=== PATIENT | female | born 1945 | race Caucasian/White ===

== ENCOUNTER 2017-02-11 21:02 | Inpatient (IN) | payer MEDICARE, BC, MEDICAID ==
[~2017-02-11 21:02] MED LIST: ACETAMINOPHEN500 M2 PO; ALBUMINAR-12.5 GM/50 IV; ALBUTEROL I0.5 ML/EA AERO NEB; ALBUTEROL0.83 MG/ML INH; ALBUTEROL2.5 MG/0.1 IH; ALBUTEROL2.5 MG/0.1 PO; ALBUTEROL2.5 MG/3 M INH; ALLERCLEAR10 MG PO; AMIODARONE HCL100 M1 PO; AMIODARONE HCL200 MG PO; AMLODIPINE PO; AMLODIPINE-BEN1 EACH PO; AMOXICILLIN500 M1 PO; AMOXICILLIN500 M2 PO; AMOXIL500 M1 PO; ANTIVERT25 MG PO; ARANESP10 MCG/0.4; ARICEPT10 M2 PO; ARICEPT10 MG PO; ARTIFICIAL TEAR15 M OP; ARTIFICIAL TEAR15 M8 EACH EYE; ARTIFICIAL TEAR1511 OP; ASPIR 8181 M1 PO; ASPIR 8181 MG PO; ASPIR-MOX 325325 MG; ASPIRIN81 M1 CH; ASPIRIN81 MG; ATIVAN1 M1 PO; ATORVASTATIN CA10 M1 PO; BABY ASPIRIN81 MG PO; BISACODYL10 M1 RC; BISCOLAX10 MG RC; BISCOLAX10 MG/SUPP RC; CALCARB 600 W/V1 TAB PO; CALCIUM 600 +1 EAC2 PO; CALCIUM 600 +1 EAC5 PO; CALCIUM 600 +1 EACH PO; CALCIUM 6001.5 G PO; CALCIUM OYSTER500 MG; CALCIUM500 MG PO; CARVEDILOL6.25 MG PO; CLARITIN10 M2 PO; CONSTULOSE10 GM/15 M PO; COREG12.5 MG PO; COREG3.125 MG; COUMADIN3 MG PO; COZAAR50 M1 PO; CYCLOBENZAPRINE5 M1 PO; DARVOCET PO; DARVOCET-N 1001 EA PO; DARVOCET-N 1001 TAB; DARVOCET-N 1001 TAB PO; DOCUSATE SODIU100 M2 PO; DOCUSATE SODIU250 M1 PO; DOCUSATE SODIU250 MG PO; DONEPEZIL HCL10 MG PO; DULCOLAX10 MG/SUPP RC; E-400400 UNIT; E-400400 UNIT PO; EPOGEN2000 U/ML IV; FORMULA E400 UNIT PO; FUROSEMIDE40 MG; FUROSEMIDE40 MG PO; FUROSEMIDE80 MG PO; GABAPENTIN100 MG PO; GLUCAGEN1 MG IJ; GLUCAGEN1 MG/1 ML IM; GLUCOSE PO; GLUCOSE4 G PO; H PO; HYDROCODONE PO; HYDROCODONE-AP1 EAC2 PO; HYDROCODONE/APA1 TA PO; IMODIUM2 MG PO; KAYEXALATE15 GM/60 M PO; KAYEXALATE453.6 G1 PO; KAYEXALATE453.6 GM PO; KEFLEX500 MG PO; KLOR-CON M20 MEQ/TAB PO; LANTUS100 U/ML; LANTUS100 U/ML SC; LASIX40 MG; LEVAQUIN500 M1 PO; LEVEMIR100 U/M SQ; LEVEMIR100 UNITS/ SC; LEVOTHYROXINE50 MC3 PO; LEVOTHYROXINE50 MCG PO; LEXAPRO10 MG; LEXAPRO10 MG PO; LEXAPRO20 M2 PO; LIDOCAINE HCL RC; LIDODERM1 EACH TOP; LIDODERM30 EA TP; LIDODERM700 MG TOP; LIPITOR10 M1 PO; LIPITOR20 MG; LIPITOR20 MG PO; LIPITOR40 MG; LIPITOR80 MG; LISINOPRIL40 MG PO; LOPRESSOR100 MG; LORTAB 5/500 TA1 TAB; LOSARTAN POTASS50 MG PO; LOTREL 10/20 MG1 CAP PO; LOTREL 5-10 MG1 CAP; LOTREL 5/20 MG1 CAP; LOVAZA1 GM PO; MAPAP325 M2 PO; MIRALAX17 G1 PO; MULTIVITAMIN1 CAP; MULTIVITAMIN1 CAP PO; MULTIVITAMIN1 TAB PO; MULTIVITAMINS1 EAC5 PO; NEURONTIN100 M1 PO; NEURONTIN100 MG PO; NITROGLYCERIN0.4 MG SL; NITROQUICK0.4 MG SL; NORCO 5-325 TA1 EACH PO; NORCO 5/3251 TA1 PO; NORVASC10 M2 PO; NORVASC5 M1 PO; NORVASC5 M2 PO; NORVASC5 MG PO; NOVOLOG FL100 UNIT/1 SQ; NOVOLOG FL100 UNIT/2 SC; NOVOLOG100 U/M; NOVOLOG100 U/M SQ; NOVOLOG100 UNITS/ SC; NYSTATIN1 EA10 TP; NYSTOP60 GM EXT; OMACOR1 G; OMACOR1 G PO; ONDANSETRON ODT4 M1 PO; OXYCODONE/APAP PO; PAIN RELIEVER325 M2 PO; PHOSLO667 M1; PHOSLO667 M1 PO; PRILOSEC20 MG PO; PROCRIT10000 U/ML IV; PROTONIX40 M1 PO; PROTONIX40 M2 PO; RENAGEL800 MG; RENAGEL800 MG PO; RENVELA800 M1 PO; RENVELA800 MG PO; ROBITUSSIN100 MG/5 M PO; ROCALTROL0.5 MCG; SALONPAS LARGE1 EACH TP; SPS15 GM/60 M PO; TAB A VITE1 EAC1 PO; THERAGRAN1 TAB PO; TRAMADOL HCL50 MG PO; TRAVATAN 0.0042.5 ML; TRAVATAN 0.0042.5 ML OP; TRIAMCINOLONE A15 G TP; TRIAMCINOLONE A15 GM; TRICOR145 M1 PO; TRICOR145 MG; TUMS500 MG; TYLENOL325 M2 PO; TYLENOL500 MG PO; ULTRAM50 M1 PO; ULTRAM50 MG PO; VITAMIN B-121000 MCG PO; VITAMIN C; VITAMIN D32000 UNIT PO; VITAMIN E400 UNI1 PO; VITAMIN E400 UNIT PO; XALATAN2.5 M1 OP; ZEMPLAR5 MCG/M1 IV; ZESTRIL20 MG PO; ZETIA10 MG; ZETIA10 MG PO; ZINC OXYDE PLUS TP; ZOFRAN4 M1 PO; ZOFRAN4 M2 PO; ZOFRAN4 MG PO; ZOFRAN8 MG PO; [UNRECOGNIZED DRUG - OTHER] RC
[2017-02-11] MEDS ORDERED: HALLS3.2 M1 MM (21:40)
[2017-02-11] MEDS ORDERED: ROBAFEN DM COU118 M1 PO (21:41)
[2017-02-11] MEDS ORDERED: CALCIUM ACETAT667 M3 PO (21:42)
[2017-02-11] MEDS ORDERED: SENSIPAR30 M1 PO (21:42)
[2017-02-11 22:21] LABS: BASO % 0.2 % (0-2); EOS % 0.2 % (0-7); HCT-HEMATOCRIT 33.8 % (34.0-49.0); HGB-HEMOGLOBIN 10.9 gm/dl (12.0-15.5); IMMATURE GRANULOCYTES ABSOLUTE 0.03 tho/cmm (0-0.03); IMMATURE GRANULOCYTES PERCENT 0.3 % (0-0.3); LYMPH % 9.7 % (20-45); LYMPH ABSOLUTE COUNT 1.1 tho/cmm (0.8-4.5); MCH (MEAN CORPUSCULAR HGB) 33.3 pg (28.0-32.0); MCHC MEAN CORPUSCULAR HGB CONC 32.2 % (32.0-36.0); MCV (MEAN CELL VOLUME) 103.4 fl (82.0-96.0); MONO % 9.2 % (0-12); NEUTROPHIL ABSOLUTE COUNT 8.8 tho/cmm (1.6-8.0); NEUTROPHIL-AUTOMATED 8.8 tho/cmm (1.6-8.0); NEUTROPHILS % 80.4 % (40-80); PLATELET COUNT 161 tho/cmm (150-450); RED BLOOD COUNT 3.27 mil/cmm (4.00-5.20); RED CELL DISTRIBUTION WIDTH 13.6 % (12.4-16.4); WHITE BLOOD COUNT 10.9 tho/cmm (4.0-10.0)
[2017-02-11 22:31] LABS: ANION GAP 19 mmol/L (0-20); BLOOD UREA NITROGEN 40 mg/dl (6-24); CALCIUM 8.4 mg/dl (8.5-10.5); CARBON DIOXIDE-VENOUS 23 mmol/L (22-32); CHLORIDE 94 mmol/l (96-110); CREATININE 5.96 mg/dl (0.50-1.10); GLUCOSE 236 mg/dL (70-110); SODIUM 131 mmol/L (135-145); eGFR VALUE FOR BLACK 7 mL/Min
[2017-02-11 22:55] LABS: PROCALCITONIN 0.69 ng/ml (0.05-0.09)
[2017-02-11 23:58] LABS: ALB/GLOB RATIO 0.7 (0.8-2.0); ALBUMIN 2.9 g/dl (3.5-5.0); ALKALINE PHOSPHATASE 134 U/L (33-138); ALT/SGPT 40 U/L (12-78); ANION GAP 19 mmol/L (0-20); AST/SGOT 59 U/L (10-40); BILIRUBIN,TOTAL 0.6 mg/dl (0-1.5); BLOOD UREA NITROGEN 40 mg/dl (6-24); CALCIUM 8.4 mg/dl (8.5-10.5); CARBON DIOXIDE-VENOUS 22 mmol/L (22-32); CHLORIDE 94 mmol/l (96-110); CREATININE 6.01 mg/dl (0.50-1.10); GLUCOSE 236 mg/dL (70-110); SODIUM 130 mmol/L (135-145); eGFR VALUE FOR BLACK 7 mL/Min
[2017-02-12 00:22] LABS: PROTHROMBIN TIME 11.3 SECONDS (9.0-13.6)
[2017-02-12 02:59] LABS: BASO % 0.1 % (0-2); EOS % 0.2 % (0-7); HCT-HEMATOCRIT 31.5 % (34.0-49.0); HGB-HEMOGLOBIN 10.1 gm/dl (12.0-15.5); IMMATURE GRANULOCYTES ABSOLUTE 0.03 tho/cmm (0-0.03); IMMATURE GRANULOCYTES PERCENT 0.3 % (0-0.3); LYMPH % 10.5 % (20-45); LYMPH ABSOLUTE COUNT 0.9 tho/cmm (0.8-4.5); MCH (MEAN CORPUSCULAR HGB) 33.3 pg (28.0-32.0); MCHC MEAN CORPUSCULAR HGB CONC 32.1 % (32.0-36.0); MEAN PLATELET VOLUME 9.6 cmc (9.4-12.4); MONO % 11.7 % (0-12); NEUTROPHIL ABSOLUTE COUNT 6.8 tho/cmm (1.6-8.0); NEUTROPHIL-AUTOMATED 6.8 tho/cmm (1.6-8.0); NEUTROPHILS % 77.2 % (40-80); PLATELET COUNT 137 tho/cmm (150-450); RED BLOOD COUNT 3.03 mil/cmm (4.00-5.20); RED CELL DISTRIBUTION WIDTH 13.5 % (12.4-16.4); WHITE BLOOD COUNT 8.8 tho/cmm (4.0-10.0)
[2017-02-12 03:18] LABS: ALB/GLOB RATIO 0.7 (0.8-2.0); ALBUMIN 2.6 g/dl (3.5-5.0); ALKALINE PHOSPHATASE 120 U/L (33-138); ALT/SGPT 43 U/L (12-78); ANION GAP 15 mmol/L (0-20); AST/SGOT 61 U/L (10-40); BILIRUBIN,TOTAL 0.6 mg/dl (0-1.5); BLOOD UREA NITROGEN 41 mg/dl (6-24); C-REACTIVE PROTEIN 11.3 mg/dl (0-0.9); CALCIUM 7.9 mg/dl (8.5-10.5); CARBON DIOXIDE-VENOUS 23 mmol/L (22-32); CHLORIDE 100 mmol/l (96-110); CREATININE 5.76 mg/dl (0.50-1.10); GLUCOSE 212 mg/dL (70-110); POTASSIUM 4.6 mmol/L (3.7-5.1); SODIUM 133 mmol/L (135-145); eGFR VALUE FOR BLACK 8 mL/Min
[2017-02-12 06:32] LABS: ALB/GLOB RATIO 0.7 (0.8-2.0); ALBUMIN 2.5 g/dl (3.5-5.0); ALKALINE PHOSPHATASE 112 U/L (33-138); ALT/SGPT 44 U/L (12-78); ANION GAP 17 mmol/L (0-20); AST/SGOT 54 U/L (10-40); BILIRUBIN,TOTAL 0.7 mg/dl (0-1.5); BLOOD UREA NITROGEN 40 mg/dl (6-24); CARBON DIOXIDE-VENOUS 24 mmol/L (22-32); CHLORIDE 99 mmol/l (96-110); CREATININE 5.69 mg/dl (0.50-1.10); GLUCOSE 169 mg/dL (70-110); POTASSIUM 4.7 mmol/L (3.7-5.1); SODIUM 135 mmol/L (135-145); eGFR VALUE FOR BLACK 8 mL/Min
[2017-02-12] MEDS ORDERED: BISCOLAX10 MG PR (10:07)
[2017-02-13 06:37] LABS: BASO % 0.3 % (0-2); EOS % 0.3 % (0-7); HCT-HEMATOCRIT 26.9 % (34.0-49.0); HGB-HEMOGLOBIN 8.7 gm/dl (12.0-15.5); IMMATURE GRANULOCYTES ABSOLUTE 0.02 tho/cmm (0-0.03); IMMATURE GRANULOCYTES PERCENT 0.3 % (0-0.3); LYMPH % 11.7 % (20-45); LYMPH ABSOLUTE COUNT 0.7 tho/cmm (0.8-4.5); MCH (MEAN CORPUSCULAR HGB) 33.3 pg (28.0-32.0); MCHC MEAN CORPUSCULAR HGB CONC 32.3 % (32.0-36.0); MCV (MEAN CELL VOLUME) 103.1 fl (82.0-96.0); MONO % 14.2 % (0-12); MONOCYTE ABSOLUTE COUNT 0.9 tho/cmm (0.0-1.2); NEUTROPHIL ABSOLUTE COUNT 4.5 tho/cmm (1.6-8.0); NEUTROPHIL-AUTOMATED 4.5 tho/cmm (1.6-8.0); NEUTROPHILS % 73.2 % (40-80); PLATELET COUNT 126 tho/cmm (150-450); RED BLOOD COUNT 2.61 mil/cmm (4.00-5.20); RED CELL DISTRIBUTION WIDTH 13.6 % (12.4-16.4); WHITE BLOOD COUNT 6.1 tho/cmm (4.0-10.0)
[2017-02-13 06:43] LABS: BLOOD UREA NITROGEN 21 mg/dl (6-24); CALCIUM 7.8 mg/dl (8.5-10.5); CARBON DIOXIDE-VENOUS 27 mmol/L (22-32); CHLORIDE 101 mmol/l (96-110); GLUCOSE 94 mg/dL (70-110); PHOSPHOROUS 2.5 mg/dl (2.5-4.9); SODIUM 139 mmol/L (135-145); eGFR VALUE FOR BLACK 13 mL/Min
[2017-02-13 06:44] LABS: ANION GAP 15 mmol/L (0-20); CREATININE 3.75 mg/dl (0.50-1.10); POTASSIUM 3.6 mmol/L (3.7-5.1)
--- NOTE | 2017-02-14 20:48 | NUR ---
VIRTUAL CARE NOTE: PT. IS DEAF, UNABLE TO COMMUNICATE WITH PT. AT THIS TIME, WILL CONTINUE TO MONITOR.
[2017-02-14 22:27] LABS: BASO % 0.2 % (0-2); EOS % 0.2 % (0-7); HCT-HEMATOCRIT 32.5 % (34.0-49.0); HGB-HEMOGLOBIN 10.4 gm/dl (12.0-15.5); IMMATURE GRANULOCYTES ABSOLUTE 0.06 tho/cmm (0-0.03); IMMATURE GRANULOCYTES PERCENT 0.6 % (0-0.3); LYMPH % 14.7 % (20-45); LYMPH ABSOLUTE COUNT 1.5 tho/cmm (0.8-4.5); MCH (MEAN CORPUSCULAR HGB) 33.2 pg (28.0-32.0); MCV (MEAN CELL VOLUME) 103.8 fl (82.0-96.0); MONO % 4.1 % (0-12); MONOCYTE ABSOLUTE COUNT 0.4 tho/cmm (0.0-1.2); NEUTROPHIL ABSOLUTE COUNT 7.9 tho/cmm (1.6-8.0); NEUTROPHIL-AUTOMATED 7.9 tho/cmm (1.6-8.0); NEUTROPHILS % 80.2 % (40-80); RED BLOOD COUNT 3.13 mil/cmm (4.00-5.20); RED CELL DISTRIBUTION WIDTH 13.7 % (12.4-16.4)
[2017-02-14 22:29] LABS: PLATELET COUNT 215 tho/cmm (150-450); WHITE BLOOD COUNT 9.9 tho/cmm (4.0-10.0)
[2017-02-14 22:45] LABS: ALB/GLOB RATIO 0.6 (0.8-2.0); ALBUMIN 2.7 g/dl (3.5-5.0); ALKALINE PHOSPHATASE 136 U/L (33-138); ALT/SGPT 53 U/L (12-78); ANION GAP 15 mmol/L (0-20); AST/SGOT 38 U/L (10-40); BILIRUBIN,TOTAL 0.6 mg/dl (0-1.5); BLOOD UREA NITROGEN 17 mg/dl (6-24); CARBON DIOXIDE-VENOUS 25 mmol/L (22-32); CHLORIDE 98 mmol/l (96-110); CREATININE 3.52 mg/dl (0.50-1.10); GLUCOSE 223 mg/dL (70-110); POTASSIUM 3.9 mmol/L (3.7-5.1); SODIUM 134 mmol/L (135-145); eGFR VALUE FOR BLACK 14 mL/Min
[2017-02-15 06:35] LABS: BASO % 0.1 % (0-2); HCT-HEMATOCRIT 29.7 % (34.0-49.0); HGB-HEMOGLOBIN 9.4 gm/dl (12.0-15.5); IMMATURE GRANULOCYTES ABSOLUTE 0.02 tho/cmm (0-0.03); IMMATURE GRANULOCYTES PERCENT 0.3 % (0-0.3); LYMPH % 9.3 % (20-45); LYMPH ABSOLUTE COUNT 0.7 tho/cmm (0.8-4.5); MCH (MEAN CORPUSCULAR HGB) 32.9 pg (28.0-32.0); MCHC MEAN CORPUSCULAR HGB CONC 31.6 % (32.0-36.0); MCV (MEAN CELL VOLUME) 103.8 fl (82.0-96.0); MONO % 10.5 % (0-12); MONOCYTE ABSOLUTE COUNT 0.8 tho/cmm (0.0-1.2); NEUTROPHILS % 79.8 % (40-80); PLATELET COUNT 173 tho/cmm (150-450); RED BLOOD COUNT 2.86 mil/cmm (4.00-5.20); RED CELL DISTRIBUTION WIDTH 13.6 % (12.4-16.4); WHITE BLOOD COUNT 7.5 tho/cmm (4.0-10.0)
[2017-02-15 06:45] LABS: ANION GAP 17 mmol/L (0-20); BLOOD UREA NITROGEN 21 mg/dl (6-24); CALCIUM 7.9 mg/dl (8.5-10.5); CARBON DIOXIDE-VENOUS 25 mmol/L (22-32); CHLORIDE 99 mmol/l (96-110); CREATININE 3.87 mg/dl (0.50-1.10); GLUCOSE 135 mg/dL (70-110); MAGNESIUM 1.7 mg/dl (1.8-2.6); POTASSIUM 4.2 mmol/L (3.7-5.1); SODIUM 137 mmol/L (135-145); eGFR VALUE FOR BLACK 13 mL/Min
--- NOTE | 2017-02-15 07:37 | NUR ---
THE PATIENT HAD BEEN INCONTINENT OF BOWELS. THE SYSTEMS DESIGNER AND MYSELF WERE CLEANING THE PATIENT UP. THE PT IS BED-BOUND AND UNABLE TO ROLL, SO A LIFT WAS USED. DURING THE CLEANING OF THE PATIENT, THE NURSE NOTICED THE PT BECOMING CYANOTIC. THE PATIENT WAS UNRESPONSIVE. THE PATIENT WAS LOWERED TO THE BED AND IT WAS DETERMINED THAT SHE WAS NOT BREATHING AND BECOMING INCREASINGLY CYANOTIC. THE CODE BUTTON WAS PUSHED AND THE TC PHONED THE SWITCHBOARD TO PAGE OUT THE CODE. I ASSESSED THE PT FOR A PULSE, WHICH WAS FAINT. WITHIN 30 SECONDS THE PATIENT BEGAN RECOVERING ON HER OWN. THE COLOR WAS RETURNING TO HER FACE AND THE CHEST BEGAN TO RISE AND FALL. NO COMPRESSIONS OR OTHER LIFE-SAVING INTERVENTIONS WERE NECESSARY.
[2017-02-15 16:10] LABS: C-REACTIVE PROTEIN 4.9 mg/dl (0-0.9)
--- NOTE | 2017-02-15 21:16 | NUR ---
VIRTUAL CARE NOTE: ASSESSMENT DEFERRED. PT. SLEEPING.
[2017-02-16 07:38] LABS: HGB-HEMOGLOBIN 9.6 gm/dl (12.0-15.5); PLATELET COUNT 183 tho/cmm (150-450)
--- NOTE | 2017-02-16 15:52 | NUR ---
VIRTUAL CARE NOTE: PT HEARING IMPAIRED, UNABLE TO COMMUNICATE VIA VIRTUAL TECHNOLOGY W/ PT. VN MONITORS RECORD
--- NOTE | 2017-02-16 19:00 | NUR ---
VIRTUAL CARE NOTE: ASSESSMENT DEFERRED. PT. SLEEPING. ALSO PT.DEAF, UNABLE TO COMMUNICATE WITH PT. WILL CONTINUE TO MONITOR.
[2017-02-17 06:23] LABS: ALBUMIN 2.5 g/dl (3.5-5.0); ANION GAP 16 mmol/L (0-20); CARBON DIOXIDE-VENOUS 22 mmol/L (22-32); CHLORIDE 99 mmol/l (96-110); GLUCOSE 169 mg/dL (70-110); PHOSPHOROUS 5.4 mg/dl (2.5-4.9); POTASSIUM 4.7 mmol/L (3.7-5.1); SODIUM 132 mmol/L (135-145); eGFR VALUE FOR BLACK 7 mL/Min
[2017-02-17 06:28] LABS: BLOOD UREA NITROGEN 46 mg/dl (6-24)
[2017-02-17 12:29] LABS: BASO % 0.1 % (0-2); HCT-HEMATOCRIT 31.8 % (34.0-49.0); HGB-HEMOGLOBIN 10.3 gm/dl (12.0-15.5); IMMATURE GRANULOCYTES ABSOLUTE 0.07 tho/cmm (0-0.03); IMMATURE GRANULOCYTES PERCENT 0.8 % (0-0.3); LYMPH % 3.6 % (20-45); LYMPH ABSOLUTE COUNT 0.3 tho/cmm (0.8-4.5); MCH (MEAN CORPUSCULAR HGB) 33.3 pg (28.0-32.0); MCHC MEAN CORPUSCULAR HGB CONC 32.4 % (32.0-36.0); MCV (MEAN CELL VOLUME) 102.9 fl (82.0-96.0); MONO % 5.1 % (0-12); MONOCYTE ABSOLUTE COUNT 0.5 tho/cmm (0.0-1.2); NEUTROPHILS % 90.4 % (40-80); PLATELET COUNT 195 tho/cmm (150-450); RED BLOOD COUNT 3.09 mil/cmm (4.00-5.20); RED CELL DISTRIBUTION WIDTH 13.6 % (12.4-16.4); WHITE BLOOD COUNT 8.8 tho/cmm (4.0-10.0)
--- NOTE | 2017-02-17 15:52 | NUR ---
VIRTUAL CARE NOTE: PT RESTING ON BED, SON AT BEDSIDE, SON HAS QUESTIONS FOR HER FLOOR NURSE REGARDING WHEN IS THE SPEECH EVAL WILL BE DONE, VN TALKED TO PASTORA AUSTIN SHE WILL COME TALK TO SON OF THE PLAN. SON DENIES FURTHER QUESTIONS.
[2017-02-18 05:12] LABS: HGB-HEMOGLOBIN 10.2 gm/dl (12.0-15.5); PLATELET COUNT 135 tho/cmm (150-450)
--- NOTE | 2017-02-18 14:56 | NUR ---
VN CALL TO RN AT [facility] AT [phone] AT 1450. SPOKE WITH EMILY. REVIEWED ACTIVITY HERE DURING HOSPITALIZATION.
--- NOTE | 2017-02-18 16:27 | NUR ---
VN NOTE-CALLED THU AT [facility] AT 1600 TO LET HER KNOW THE VAN HAS NOT BEEN HERE TO STOCKROOM KEEPER PATIENT. SHE WILL CHECK INTO
[2017-02-19] MEDS ORDERED: MUCINEX600 M1 PO (13:34)
[2017-02-19] MEDS ORDERED: MIDODRINE HCL5 M1 PO (13:42)
[2017-02-19] MEDS ORDERED: LEVEMIR FL100 UNIT/2 SC (13:46)
[2017-02-19] MEDS ORDERED: MIRALAX17 G2 PO ×2 (13:49→14:23)
[2017-02-19] MEDS ORDERED: LIDODERM1 EACH TP (13:50)
[2017-02-19] MEDS ORDERED: CALAMINE LOTIO177 M1 TP (14:24)
[2017-02-19] MEDS ORDERED: BISACODYL10 M1 RC (14:24)
[2017-02-19] MEDS ORDERED: BIOFREEZE118 M1 TP (14:25)
[2017-02-19] MEDS ORDERED: [UNRECOGNIZED DRUG - SUPPLY] (14:26)
== END 2017-02-18 17:00 | disposition other institution (70) | DRG 871 ==
LOC: EDMED 21:02 → EMR2 23:23 → CCU 02-12 00:14 → 5WD 02-13 15:45
PROVIDERS: Emergency Medicine; Hospitalist; Internal Medicine; Internal Medicine Cardiovascular Disease; Internal Medicine Nephrology; ADMIT Internal Medicine
PROC: 05H533Z Insertion of Infusion Device into Right Subclavian Vein, Percutaneous Approach (ICD-10-PCS; principal; 2017-02-11)
PROC: 5A1D60Z (ICD-10-PCS; 2017-02-12)
DX: A41.9 Sepsis, unspecified organism (principal); N18.6 End stage renal disease; R65.21 Severe sepsis with septic shock; G93.41 Metabolic encephalopathy; E11.22 Type 2 diabetes mellitus with diabetic chronic kidney disease; T17.900A Unspecified foreign body in respiratory tract, part unspecified causing asphyxiation, initial encounter; I27.2 Other secondary pulmonary hypertension; F03.90 Unspecified dementia, unspecified severity, without behavioral disturbance, psychotic disturbance, mood disturbance, and anxiety; E11.65 Type 2 diabetes mellitus with hyperglycemia; Z68.41 Body mass index [BMI] 40.0-44.9, adult; I69.359 Hemiplegia and hemiparesis following cerebral infarction affecting unspecified side; R13.10 Dysphagia, unspecified; R55 Syncope and collapse; R53.81 Other malaise; Z99.2 Dependence on renal dialysis; I25.10 Atherosclerotic heart disease of native coronary artery without angina pectoris; Z95.5 Presence of coronary angioplasty implant and graft; I35.0 Nonrheumatic aortic (valve) stenosis; I48.2 Chronic atrial fibrillation; H90.3 Sensorineural hearing loss, bilateral; E03.9 Hypothyroidism, unspecified; K21.9 Gastro-esophageal reflux disease without esophagitis; G47.33 Obstructive sleep apnea (adult) (pediatric); E78.5 Hyperlipidemia, unspecified; M19.90 Unspecified osteoarthritis, unspecified site; Z87.891 Personal history of nicotine dependence; Z79.82 Long term (current) use of aspirin; Z88.2 Allergy status to sulfonamides; Z88.8 Allergy status to other drugs, medicaments and biological substances; Z91.040 Latex allergy status; Z79.4 Long term (current) use of insulin; E66.9 Obesity, unspecified; R60.0 Localized edema; D63.1 Anemia in chronic kidney disease
CPT/HCPCS: C1751; G8996-GN-CJ; G8997-GN-CI; G8998-GN-CI; J0885; J1644; J1815; J2405; J2543; J2920; J3370; J7030; J7050; P9045; P9047; P9612

== ENCOUNTER 2017-02-19 05:12 | Inpatient (IN) | payer MEDICARE, BC, MEDICAID ==
[~2017-02-19 05:12] MED LIST changes: +BISCOLAX10 MG PR; +CALCIUM ACETAT667 M3 PO; +HALLS3.2 M1 MM; +ROBAFEN DM COU118 M1 PO; +SENSIPAR30 M1 PO
[2017-02-19 06:03] LABS: ABG CO2 ARTERIAL 21 mmol/L (21-27); ARTERIAL BLD GAS O2 SATURATION 97 % (95-98); ARTERIAL BLOOD GAS PCO2 38 mmHg (32-45); ARTERIAL PO2 99 mmHg (70-100); BICARBONATE 20 mmol/L (21-28); BLOOD GAS BASE EXCESS -5 mM/L (-/+3); PH 7.34 Units (7.35-7.45)
[2017-02-19 06:04] LABS: BASO % 0.2 % (0-2); EOS % 0.2 % (0-7); HCT-HEMATOCRIT 32.1 % (34.0-49.0); HGB-HEMOGLOBIN 10.2 gm/dl (12.0-15.5); IMMATURE GRANULOCYTES ABSOLUTE 0.18 tho/cmm (0-0.03); LYMPH % 6.6 % (20-45); LYMPH ABSOLUTE COUNT 1.2 tho/cmm (0.8-4.5); MCH (MEAN CORPUSCULAR HGB) 32.8 pg (28.0-32.0); MCHC MEAN CORPUSCULAR HGB CONC 31.8 % (32.0-36.0); MCV (MEAN CELL VOLUME) 103.2 fl (82.0-96.0); MEAN PLATELET VOLUME 10.4 cmc (9.4-12.4); MONO % 6.9 % (0-12); MONOCYTE ABSOLUTE COUNT 1.3 tho/cmm (0.0-1.2); NEUTROPHIL ABSOLUTE COUNT 15.8 tho/cmm (1.6-8.0); NEUTROPHIL-AUTOMATED 15.8 tho/cmm (1.6-8.0); NEUTROPHILS % 85.1 % (40-80); PLATELET COUNT 134 tho/cmm (150-450); RED BLOOD COUNT 3.11 mil/cmm (4.00-5.20); RED CELL DISTRIBUTION WIDTH 14.1 % (12.4-16.4)
[2017-02-19 06:07] LABS: PROTHROMBIN TIME 11.9 SECONDS (9.0-13.6)
[2017-02-19 06:10] LABS: WHITE BLOOD COUNT 18.5 tho/cmm (4.0-10.0)
[2017-02-19 06:23] LABS: ALB/GLOB RATIO 0.6 (0.8-2.0); ALBUMIN 2.6 g/dl (3.5-5.0); ALKALINE PHOSPHATASE 112 U/L (33-138); ALT/SGPT 100 U/L (12-78); BILIRUBIN,TOTAL 0.9 mg/dl (0-1.5); BLOOD UREA NITROGEN 41 mg/dl (6-24); CARBON DIOXIDE-VENOUS 21 mmol/L (22-32); CHLORIDE 98 mmol/l (96-110); CREATININE 5.78 mg/dl (0.50-1.10); GLUCOSE 173 mg/dL (70-110); SODIUM 135 mmol/L (135-145); eGFR VALUE FOR BLACK 8 mL/Min
[2017-02-19 06:32] LABS: ANION GAP 20 mmol/L (0-20); AST/SGOT 57 U/L (10-40); POTASSIUM 4.2 mmol/L (3.7-5.1)
[2017-02-19 06:59] LABS: PROCALCITONIN 3.35 ng/ml (0.05-0.09)
[2017-02-19 07:03] LABS: URINE BILIRUBIN NEGATIVE (NEG); URINE BLOOD LARGE (NEG); URINE GLUCOSE (UA) MODERATE (NEG); URINE KETONE NEGATIVE (NEG); URINE LEUKOCYTE ESTERASE POSITIVE (NEG); URINE NITRITE NEGATIVE (NEG); URINE PROTEIN SMALL (NEG); URINE SPECIFIC GRAVITY 1.015 (1.003-1.030)
[2017-02-19 07:05] LABS: URINE APPEARANCE HAZY; URINE COLOR PALE YELLOW
[2017-02-19 07:09] LABS: URINE BACTERIA 1+; URINE EPITHELIAL CELLS 0-3 /[HPF] (0-10)
[2017-02-19] MEDS ORDERED: MUCINEX600 M1 PO (13:34)
[2017-02-19] MEDS ORDERED: MIDODRINE HCL5 M1 PO (13:42)
[2017-02-19] MEDS ORDERED: LEVEMIR FL100 UNIT/2 SC (13:46)
[2017-02-19] MEDS ORDERED: MIRALAX17 G2 PO ×2 (13:49→14:23)
[2017-02-19] MEDS ORDERED: LIDODERM1 EACH TP (13:50)
[2017-02-19] MEDS ORDERED: CALAMINE LOTIO177 M1 TP (14:24)
[2017-02-19] MEDS ORDERED: BISACODYL10 M1 RC (14:24)
[2017-02-19] MEDS ORDERED: BIOFREEZE118 M1 TP (14:25)
[2017-02-19] MEDS ORDERED: [UNRECOGNIZED DRUG - SUPPLY] (14:26)
--- NOTE | 2017-02-19 18:45 | NUR ---
0845 PATIENT ARRIVES VIA CART FROM ER. EYES CLOSED, MOANS WITH TRANSFER TO BED. OPENS EYES TO TACTILE/PAINFUL STIMULI. DOESN'T STAY AWAKE WITHOUT CONTINUED STIMULI. 2ND LITER OF NS INFUSING. FEET COLD AND MOTTLED WITH CAP REFILL OF > 4 SECONDS. BILATERAL LEGS WITH 3+ EDEMA. ABD. AND ARMS HAVE MULTIPLE BRUISED AREAS. LEFT ARM AV FISTULA WITH WEAK BRUIT/THRILL. 0910 DR. HUGGINS HERE TO SEE PATIENT AND SPEAKS WITH PT'S SON DERIC. LEVOPHED STARTED FOR MAP < 60. MONITOR SHOWS ATRIAL FIB RATE 100'S. 0930 RT. SUBCLAVIAN QUAD LUMEN CENTRAL LINE BEING INSERTED BY DR. HUGGINS. [address]. PCXR DONE. 1030 BIPAP OFF PER PT. REQUEST. RESP. RATE AND HR INCREASE WITH INCREASED WOB. 1110 BACK ON BIPAP, HR REMAINS > 110. DR. CORONEL NOTIFIED AND ORDERS RECIEVED. DR. BUCK HERE AND PLACES RT. RADIAL ART. LINE. 1230 DIALYSIS NURSE HERE TO RUN HEMODIALYSIS. SBP> 95 AND MAP>65 WITH LEVOPHED @ 0.1MCG/KG/MIN. 1400 VS ARE STABLE, MORE ALERT AND COMMUNICATING WITH SON. FEET REMAIN DISCOLORED AND COOL. [address] HUGGINS AND DR. CORONEL NOTIFIED OF SVO2 AND LACTIC ACID RESULTS. ECHOCARDIOGRAM DONE.
[2017-02-20 04:34] LABS: ALB/GLOB RATIO 0.5 (0.8-2.0); ALBUMIN 2.1 g/dl (3.5-5.0); ALKALINE PHOSPHATASE 84 U/L (33-138); ANION GAP 18 mmol/L (0-20); BILIRUBIN,TOTAL 1.2 mg/dl (0-1.5); BLOOD UREA NITROGEN 25 mg/dl (6-24); CALCIUM 7.4 mg/dl (8.5-10.5); CARBON DIOXIDE-VENOUS 23 mmol/L (22-32); CHLORIDE 100 mmol/l (96-110); GLUCOSE 155 mg/dL (70-110); POTASSIUM 3.7 mmol/L (3.7-5.1); SODIUM 137 mmol/L (135-145)
[2017-02-20 04:52] LABS: AST/SGOT 233 U/L (10-40); CREATININE 3.82 mg/dl (0.50-1.10); eGFR VALUE FOR BLACK 13 mL/Min
[2017-02-20 04:53] LABS: ALT/SGPT 188 U/L (12-78)
[2017-02-20 05:15] LABS: BASO % 0.1 % (0-2); HCT-HEMATOCRIT 29.7 % (34.0-49.0); HGB-HEMOGLOBIN 9.5 gm/dl (12.0-15.5); IMMATURE GRANULOCYTES ABSOLUTE 0.07 tho/cmm (0-0.03); IMMATURE GRANULOCYTES PERCENT 0.5 % (0-0.3); LYMPH % 4.2 % (20-45); LYMPH ABSOLUTE COUNT 0.6 tho/cmm (0.8-4.5); MCH (MEAN CORPUSCULAR HGB) 33.1 pg (28.0-32.0); MCV (MEAN CELL VOLUME) 103.5 fl (82.0-96.0); MONO % 6.6 % (0-12); MONOCYTE ABSOLUTE COUNT 0.9 tho/cmm (0.0-1.2); NEUTROPHIL ABSOLUTE COUNT 11.6 tho/cmm (1.6-8.0); NEUTROPHIL-AUTOMATED 11.6 tho/cmm (1.6-8.0); NEUTROPHILS % 88.6 % (40-80); RED BLOOD COUNT 2.87 mil/cmm (4.00-5.20); RED CELL DISTRIBUTION WIDTH 14.4 % (12.4-16.4); WHITE BLOOD COUNT 13.1 tho/cmm (4.0-10.0)
[2017-02-20 06:02] LABS: ABG CO2 ARTERIAL 24 mmol/L (21-27); ARTERIAL BLD GAS O2 SATURATION 100 % (95-98); ARTERIAL BLOOD GAS PCO2 41 mmHg (32-45); BICARBONATE 22 mmol/L (21-28); BLOOD GAS BASE EXCESS -3 mM/L (-/+3); PH 7.35 Units (7.35-7.45)
[2017-02-20 06:03] LABS: ARTERIAL PO2 214 mmHg (70-100)
[2017-02-20 10:14] LABS: PLATELET COUNT 61 tho/cmm (150-450)
[2017-02-21 03:34] LABS: BASO % 0.1 % (0-2); EOS % 0.1 % (0-7); HCT-HEMATOCRIT 29.7 % (34.0-49.0); HGB-HEMOGLOBIN 9.5 gm/dl (12.0-15.5); IMMATURE GRANULOCYTES ABSOLUTE 0.06 tho/cmm (0-0.03); IMMATURE GRANULOCYTES PERCENT 0.5 % (0-0.3); LYMPH % 4.3 % (20-45); LYMPH ABSOLUTE COUNT 0.6 tho/cmm (0.8-4.5); MCH (MEAN CORPUSCULAR HGB) 32.9 pg (28.0-32.0); MCV (MEAN CELL VOLUME) 102.8 fl (82.0-96.0); MEAN PLATELET VOLUME 11.5 cmc (9.4-12.4); MONO % 6.7 % (0-12); MONOCYTE ABSOLUTE COUNT 0.9 tho/cmm (0.0-1.2); NEUTROPHIL ABSOLUTE COUNT 11.4 tho/cmm (1.6-8.0); NEUTROPHIL-AUTOMATED 11.4 tho/cmm (1.6-8.0); NEUTROPHILS % 88.3 % (40-80); PLATELET COUNT 57 tho/cmm (150-450); RED BLOOD COUNT 2.89 mil/cmm (4.00-5.20); RED CELL DISTRIBUTION WIDTH 14.6 % (12.4-16.4); WHITE BLOOD COUNT 12.9 tho/cmm (4.0-10.0)
[2017-02-21 04:09] LABS: ALB/GLOB RATIO 0.4 (0.8-2.0); ALBUMIN 1.9 g/dl (3.5-5.0); ALKALINE PHOSPHATASE 78 U/L (33-138); ALT/SGPT 240 U/L (12-78); ANION GAP 20 mmol/L (0-20); AST/SGOT 233 U/L (10-40); BILIRUBIN,TOTAL 1.5 mg/dl (0-1.5); BLOOD UREA NITROGEN 34 mg/dl (6-24); CALCIUM 7.5 mg/dl (8.5-10.5); CARBON DIOXIDE-VENOUS 19 mmol/L (22-32); CHLORIDE 96 mmol/l (96-110); CREATININE 4.56 mg/dl (0.50-1.10); GLUCOSE 203 mg/dL (70-110); POTASSIUM 4.2 mmol/L (3.7-5.1); SODIUM 131 mmol/L (135-145); eGFR VALUE FOR BLACK 10 mL/Min
[2017-02-22 04:12] LABS: EOS % 0.1 % (0-7); HCT-HEMATOCRIT 27.4 % (34.0-49.0); HGB-HEMOGLOBIN 9.1 gm/dl (12.0-15.5); IMMATURE GRANULOCYTES ABSOLUTE 0.03 tho/cmm (0-0.03); IMMATURE GRANULOCYTES PERCENT 0.4 % (0-0.3); LYMPH % 4.3 % (20-45); LYMPH ABSOLUTE COUNT 0.3 tho/cmm (0.8-4.5); MCH (MEAN CORPUSCULAR HGB) 33.5 pg (28.0-32.0); MCHC MEAN CORPUSCULAR HGB CONC 33.2 % (32.0-36.0); MCV (MEAN CELL VOLUME) 100.7 fl (82.0-96.0); MEAN PLATELET VOLUME 11.3 cmc (9.4-12.4); MONO % 7.5 % (0-12); MONOCYTE ABSOLUTE COUNT 0.6 tho/cmm (0.0-1.2); NEUTROPHIL ABSOLUTE COUNT 6.6 tho/cmm (1.6-8.0); NEUTROPHIL-AUTOMATED 6.6 tho/cmm (1.6-8.0); NEUTROPHILS % 87.7 % (40-80); RED BLOOD COUNT 2.72 mil/cmm (4.00-5.20); RED CELL DISTRIBUTION WIDTH 14.8 % (12.4-16.4); WHITE BLOOD COUNT 7.5 tho/cmm (4.0-10.0)
[2017-02-22 04:26] LABS: ALB/GLOB RATIO 0.6 (0.8-2.0); ALBUMIN 2.2 g/dl (3.5-5.0); ALKALINE PHOSPHATASE 81 U/L (33-138); ALT/SGPT 311 U/L (12-78); ANION GAP 16 mmol/L (0-20); AST/SGOT 255 U/L (10-40); BILIRUBIN,DIRECT 1.2 mg/dl (0.0-0.3); BILIRUBIN,INDIRECT 0.7 mg/dL (0.0-1.0); BILIRUBIN,TOTAL 1.9 mg/dl (0-1.5); BLOOD UREA NITROGEN 23 mg/dl (6-24); CALCIUM 7.2 mg/dl (8.5-10.5); CARBON DIOXIDE-VENOUS 24 mmol/L (22-32); CHLORIDE 100 mmol/l (96-110); GLUCOSE 176 mg/dL (70-110); POTASSIUM 3.6 mmol/L (3.7-5.1); SODIUM 136 mmol/L (135-145); eGFR VALUE FOR BLACK 16 mL/Min
[2017-02-22 04:54] LABS: CREATININE 3.26 mg/dl (0.50-1.10)
[2017-02-22 05:12] LABS: PLATELET COUNT 27 tho/cmm (150-450)
[2017-02-23 05:15] LABS: ALB/GLOB RATIO 0.7 (0.8-2.0); ALBUMIN 2.5 g/dl (3.5-5.0); ALKALINE PHOSPHATASE 92 U/L (33-138); ALT/SGPT 246 U/L (12-78); ANION GAP 17 mmol/L (0-20); AST/SGOT 167 U/L (10-40); BILIRUBIN,TOTAL 2.4 mg/dl (0-1.5); CALCIUM 7.7 mg/dl (8.5-10.5); CARBON DIOXIDE-VENOUS 23 mmol/L (22-32); CHLORIDE 98 mmol/l (96-110); CREATININE 3.96 mg/dl (0.50-1.10); GLUCOSE 156 mg/dL (70-110); MAGNESIUM 1.5 mg/dl (1.8-2.6); POTASSIUM 3.7 mmol/L (3.7-5.1); SODIUM 134 mmol/L (135-145); eGFR VALUE FOR BLACK 12 mL/Min
[2017-02-23 05:29] LABS: BLOOD UREA NITROGEN 35 mg/dl (6-24)
[2017-02-23 13:52] LABS: BASO % 0.1 % (0-2); EOS % 0.9 % (0-7); EOSINOPHIL ABSOLUTE COUNT 0.1 tho/cmm (0.0-0.7); HCT-HEMATOCRIT 28.6 % (34.0-49.0); HGB-HEMOGLOBIN 9.5 gm/dl (12.0-15.5); IMMATURE GRANULOCYTES ABSOLUTE 0.08 tho/cmm (0-0.03); LYMPH % 8.6 % (20-45); LYMPH ABSOLUTE COUNT 0.7 tho/cmm (0.8-4.5); MCH (MEAN CORPUSCULAR HGB) 33.3 pg (28.0-32.0); MCHC MEAN CORPUSCULAR HGB CONC 33.2 % (32.0-36.0); MCV (MEAN CELL VOLUME) 100.4 fl (82.0-96.0); MONO % 10.4 % (0-12); MONOCYTE ABSOLUTE COUNT 0.8 tho/cmm (0.0-1.2); NEUTROPHIL ABSOLUTE COUNT 6.2 tho/cmm (1.6-8.0); NEUTROPHIL-AUTOMATED 6.2 tho/cmm (1.6-8.0); RED BLOOD COUNT 2.85 mil/cmm (4.00-5.20); WHITE BLOOD COUNT 7.8 tho/cmm (4.0-10.0)
[2017-02-23 14:26] LABS: PLATELET COUNT 17 tho/cmm (150-450)
[2017-02-23 17:34] LABS: INR 1.2 INR (0.9-1.1); PROTHROMBIN TIME 13.4 SECONDS (9.0-13.6)
[2017-02-23 17:46] LABS: ALB/GLOB RATIO 0.6 (0.8-2.0); ALBUMIN 2.4 g/dl (3.5-5.0); BILIRUBIN,DIRECT 1.5 mg/dl (0.0-0.3); BILIRUBIN,INDIRECT 0.8 mg/dL (0.0-1.0); BILIRUBIN,TOTAL 2.3 mg/dl (0-1.5)
[2017-02-23 21:22] LABS: PARTIAL THROMBOPLASTIN TIME 41 SECONDS (22-36)
[2017-02-23 23:46] LABS: PARTIAL THROMBOPLASTIN TIME 54 SECONDS (22-36)
[2017-02-24 04:25] LABS: BASO % 0.1 % (0-2); EOS % 0.8 % (0-7); EOSINOPHIL ABSOLUTE COUNT 0.1 tho/cmm (0.0-0.7); HCT-HEMATOCRIT 27.9 % (34.0-49.0); HGB-HEMOGLOBIN 9.4 gm/dl (12.0-15.5); IMMATURE GRANULOCYTES ABSOLUTE 0.11 tho/cmm (0-0.03); IMMATURE GRANULOCYTES PERCENT 1.4 % (0-0.3); LYMPH % 4.3 % (20-45); LYMPH ABSOLUTE COUNT 0.3 tho/cmm (0.8-4.5); MCH (MEAN CORPUSCULAR HGB) 33.2 pg (28.0-32.0); MCHC MEAN CORPUSCULAR HGB CONC 33.7 % (32.0-36.0); MCV (MEAN CELL VOLUME) 98.6 fl (82.0-96.0); MONO % 8.4 % (0-12); MONOCYTE ABSOLUTE COUNT 0.7 tho/cmm (0.0-1.2); NEUTROPHIL ABSOLUTE COUNT 6.7 tho/cmm (1.6-8.0); NEUTROPHIL-AUTOMATED 6.7 tho/cmm (1.6-8.0); RED BLOOD COUNT 2.83 mil/cmm (4.00-5.20); RED CELL DISTRIBUTION WIDTH 15.4 % (12.4-16.4); WHITE BLOOD COUNT 7.9 tho/cmm (4.0-10.0)
[2017-02-24 04:52] LABS: ALB/GLOB RATIO 0.6 (0.8-2.0); ALBUMIN 2.1 g/dl (3.5-5.0); ALKALINE PHOSPHATASE 135 U/L (33-138); ALT/SGPT 184 U/L (12-78); ANION GAP 18 mmol/L (0-20); AST/SGOT 94 U/L (10-40); BILIRUBIN,TOTAL 2.2 mg/dl (0-1.5); BLOOD UREA NITROGEN 45 mg/dl (6-24); CALCIUM 7.1 mg/dl (8.5-10.5); CARBON DIOXIDE-VENOUS 21 mmol/L (22-32); CHLORIDE 96 mmol/l (96-110); CREATININE 4.58 mg/dl (0.50-1.10); GLUCOSE 189 mg/dL (70-110); MAGNESIUM 1.9 mg/dl (1.8-2.6); POTASSIUM 3.5 mmol/L (3.7-5.1); SODIUM 131 mmol/L (135-145); eGFR VALUE FOR BLACK 10 mL/Min
[2017-02-24 04:54] LABS: INR 2.5 INR (0.9-1.1); PARTIAL THROMBOPLASTIN TIME 70 SECONDS (22-36); PROTHROMBIN TIME 29.7 SECONDS (9.0-13.6)
[2017-02-24 05:24] LABS: PLATELET COUNT 14 tho/cmm (150-450)
--- NOTE | 2017-02-24 14:28 | NUR ---
EXERCISE SPECIALIST CALLED TO NOTIFY FLOOR RN THAT PATIENT HAD BEEN UNHOOKED FROM DIALYSIS FOR ROUGHLY AN HOUR BUT WOULD NOT STOP BLEEDING OUT OF FISTULA SITE. RONAK WAS NOTIFIED. ORDERS TO STOP ARGATRABAN DRIP, AND TO CONSENT FOR FISTULAGRAM. CONSENT FOR PROCEDURE GAINED OVER THE PHONE WITH SON.
--- NOTE | 2017-02-24 14:34 | NUR ---
IMS HERE TO SEE PATIENT. PATIENT CONTINUOUSLY STATES, "I WANT TO , I WANT TO , I DO NOT WANT DO THIS ANYMORE." FAMILY NOTIFIED. PALLIATIVE CONSULTED. [employer] SUPER[employer]OR[employer]S HERE FOR PROCEDURE. DR. MCGREGOR NOTIFIED OF SITUATION. RN'S WILL COME BACK AFTER SCHEDULED PROCEDURE DOWNSTAIRS D/T PALLIATIVE HERE TO DISCUSS CODE STATUS AND GOALS OF CARE WITH FAMILY AND PATIENT.
--- NOTE | 2017-02-24 17:14 | NUR ---
PATIENT DOWN TO RADIOLOGY FOR FISTULAGRAM.
[2017-02-24 19:13] LABS: PLATELET COUNT 31 tho/cmm (150-450)
[2017-02-25 06:04] LABS: BASO % 0.3 % (0-2); EOS % 0.4 % (0-7); HCT-HEMATOCRIT 26.7 % (34.0-49.0); HGB-HEMOGLOBIN 8.7 gm/dl (12.0-15.5); IMMATURE GRANULOCYTES ABSOLUTE 0.11 tho/cmm (0-0.03); IMMATURE GRANULOCYTES PERCENT 1.6 % (0-0.3); LYMPH % 6.7 % (20-45); LYMPH ABSOLUTE COUNT 0.5 tho/cmm (0.8-4.5); MCH (MEAN CORPUSCULAR HGB) 32.7 pg (28.0-32.0); MCHC MEAN CORPUSCULAR HGB CONC 32.6 % (32.0-36.0); MCV (MEAN CELL VOLUME) 100.4 fl (82.0-96.0); MEAN PLATELET VOLUME 12.4 cmc (9.4-12.4); MONO % 10.9 % (0-12); MONOCYTE ABSOLUTE COUNT 0.8 tho/cmm (0.0-1.2); NEUTROPHIL ABSOLUTE COUNT 5.5 tho/cmm (1.6-8.0); NEUTROPHIL-AUTOMATED 5.5 tho/cmm (1.6-8.0); NEUTROPHILS % 80.1 % (40-80); RED BLOOD COUNT 2.66 mil/cmm (4.00-5.20); RED CELL DISTRIBUTION WIDTH 16.2 % (12.4-16.4); WHITE BLOOD COUNT 6.9 tho/cmm (4.0-10.0)
[2017-02-25 06:07] LABS: INR 1.9 INR (0.9-1.1); PROTHROMBIN TIME 22.6 SECONDS (9.0-13.6)
[2017-02-25 06:09] LABS: PARTIAL THROMBOPLASTIN TIME 52 SECONDS (22-36)
[2017-02-25 06:15] LABS: PLATELET COUNT 26 tho/cmm (150-450)
[2017-02-25 06:19] LABS: ALB/GLOB RATIO 0.8 (0.8-2.0); ALBUMIN 2.8 g/dl (3.5-5.0); ALKALINE PHOSPHATASE 141 U/L (33-138); ALT/SGPT 127 U/L (12-78); ANION GAP 18 mmol/L (0-20); AST/SGOT 60 U/L (10-40); BILIRUBIN,DIRECT 1.3 mg/dl (0.0-0.3); BILIRUBIN,INDIRECT 1.1 mg/dL (0.0-1.0); BILIRUBIN,TOTAL 2.4 mg/dl (0-1.5); BLOOD UREA NITROGEN 29 mg/dl (6-24); CALCIUM 7.3 mg/dl (8.5-10.5); CARBON DIOXIDE-VENOUS 24 mmol/L (22-32); CHLORIDE 97 mmol/l (96-110); GLUCOSE 210 mg/dL (70-110); PHOSPHOROUS 2.4 mg/dl (2.5-4.9); POTASSIUM 3.5 mmol/L (3.7-5.1); SODIUM 135 mmol/L (135-145); eGFR VALUE FOR BLACK 15 mL/Min
[2017-02-25 06:20] LABS: CREATININE 3.43 mg/dl (0.50-1.10)
[2017-02-25] MEDS ORDERED: AMIODARONE HCL200 M1 PO (15:17)
[2017-02-25] MEDS ORDERED: TESSALON PERLE100 M1 PO (15:19)
[2017-02-25] MEDS ORDERED: ATIVAN2 MG/1 ML PO/SL (15:23)
[2017-02-25] MEDS ORDERED: OXYFAST PO/SL (15:26)
== END 2017-02-25 16:00 | disposition hospice, inpatient (51) | DRG 853 ==
LOC: EDMED 05:12 → EMR2 08:07 → CCU 08:47 → PCUA 02-23 10:16
PROVIDERS: Emergency Medicine; Internal Medicine; Internal Medicine Medical Oncology; Internal Medicine Pulmonary Disease; ADMIT Family Medicine
PROC: 05H533Z Insertion of Infusion Device into Right Subclavian Vein, Percutaneous Approach (ICD-10-PCS; 2017-02-19)
PROC: 5A1D60Z (ICD-10-PCS; 2017-02-19)
PROC: 03783ZZ Dilation of Left Brachial Artery, Percutaneous Approach (ICD-10-PCS; principal; 2017-02-24)
PROC: 30233N1 Transfusion of Nonautologous Red Blood Cells into Peripheral Vein, Percutaneous Approach (ICD-10-PCS; 2017-02-24)
DX: A41.9 Sepsis, unspecified organism (principal); J96.01 Acute respiratory failure with hypoxia; R65.21 Severe sepsis with septic shock; K72.00 Acute and subacute hepatic failure without coma; G93.41 Metabolic encephalopathy; J18.9 Pneumonia, unspecified organism; A04.7 Enterocolitis due to Clostridium difficile; I12.0 Hypertensive chronic kidney disease with stage 5 chronic kidney disease or end stage renal disease; N18.6 End stage renal disease; E46 Unspecified protein-calorie malnutrition; T82.858A Stenosis of other vascular prosthetic devices, implants and grafts, initial encounter; Z66 Do not resuscitate; Z51.5 Encounter for palliative care; F03.90 Unspecified dementia, unspecified severity, without behavioral disturbance, psychotic disturbance, mood disturbance, and anxiety; I25.10 Atherosclerotic heart disease of native coronary artery without angina pectoris; E11.22 Type 2 diabetes mellitus with diabetic chronic kidney disease; K21.9 Gastro-esophageal reflux disease without esophagitis; E03.9 Hypothyroidism, unspecified; G47.33 Obstructive sleep apnea (adult) (pediatric); I35.0 Nonrheumatic aortic (valve) stenosis; I48.2 Chronic atrial fibrillation; D63.1 Anemia in chronic kidney disease; D69.6 Thrombocytopenia, unspecified; H91.90 Unspecified hearing loss, unspecified ear; I70.208 Unspecified atherosclerosis of native arteries of extremities, other extremity; Z91.040 Latex allergy status; Q21.1 Atrial septal defect; Z79.4 Long term (current) use of insulin; Z88.2 Allergy status to sulfonamides
CPT/HCPCS: C1725; C1769; C1887; C8924; C9113; G8996-GN-CI; G8996-GN-CJ; G8997-GN-CI; J0282; J0713; J0883; J0885; J1644; J1815; J1956; J2543; J3010; J3370; J3475; J7030; J7040; J7050; P9035; P9037; P9045; P9047; P9612; Q9967